=== PATIENT | female | born 1945 | race Caucasian/White ===

== ENCOUNTER 2018-08-28 13:55 | Emergency (ER) | payer MEDICARE ==
[2018-08-28] MEDS ORDERED: diphenhydrAMINE 50 MG/ML VIAL ONE (14:21)
[2018-08-28] MEDS ORDERED: Metoclopramide HCl 10 MG/2 ML VIAL ONE (14:21)
[2018-08-28 14:37] LABS: #Basophils 0.1 thou/uL (0.0-0.2); #Eosinphils 0.1 thou/uL (0.0-0.7); #Lymphocytes 1.5 thou/uL (1.20-3.40); #Monocytes 0.7 thou/uL (0.11-0.59); #Neutrophils 4.3 thou/uL (1.40-6.50); %Basophils 1.4 % (0.0-1.0); %Eosinophils 1.2 % (0.0-10.0); %Lymphocytes 22.8 % (21.0-51.0); %Monocytes 10.8 % (0.0-10.0); %Neutrophils 63.7 % (42.0-75.0); Mean Corpuscular HGB CONC 32.3 g/dL (32.0-36.0); Mean Corpuscular Volume 86.6 fL (78.0-98.0); Mean Platelet Volume 8.3 fL (7.4-10.4); Platelet Count 258 thou/uL (130-400); Red Blood Cell (RBC) Count 5.02 mill/uL (4.20-5.40); White Blood Cell (WBC) Count 6.7 thou/uL (4.8-10.8)
[2018-08-28 14:51] LABS: ALT (SGPT) 36 U/L (8-55); AST (SGOT) 32 U/L (5-34); Albumin 4.6 g/dL (3.4-4.8); Alkaline Phosphatase 84 U/L (40-150); Anion Gap 17 mmol/L (10-20); BUN (Urea Nitrogen) 33 mg/dL (9.8-20.1); Bilirubin, Total 0.4 mg/dL (0.2-1.2); Calc. Creatinine Clearance 0 mL/min (70-130); Calcium 10.1 mg/dL (7.8-10.44); Carbon Dioxide 21 mmol/L (23-31); Chloride 104 mmol/L (98-107); Estimated GFR-MDRD 64; Glucose 133 mg/dL (83-110); Lipase 22 U/L (8-78); Potassium 3.4 mmol/L (3.5-5.1); Protein, Total 7.6 g/dL (6.0-8.3); Sodium 139 mmol/L (136-145)
== END 2018-08-28 15:42 | disposition home or self-care (01) ==
LOC: SCSER 13:55
DX: R11.2 Nausea with vomiting, unspecified (principal); R19.7 Diarrhea, unspecified; F32.9 Major depressive disorder, single episode, unspecified; Z87.891 Personal history of nicotine dependence; Z79.899 Other long term (current) drug therapy
CPT/HCPCS: 80053; 83690; 85025; 96365; 96375; J1200; J2765

== ENCOUNTER 2019-03-19 10:20 | Outpatient (CLI) | payer MEDICARE ==
--- NOTE | 2019-03-19 11:33 | RAD ---
LEFT KNEE 3 VIEWS: Date: 03/19/19 HISTORY: Pain left knee. FINDINGS: Status post total knee arthroplasty changes. Soft tissue swelling, generalized, anteriorly, and media lly, No periprosthetic fracture. No dislocation. IMPRESSION: Some soft tissue swelling without other acute osseous abnormality. POS: [facility]
== END 2019-03-19 10:21 | disposition home or self-care (01) ==
LOC: SCSRAD 10:20
PROVIDERS: ATTEND Orthopaedic Surgery
DX: Z47.1 Aftercare following joint replacement surgery (principal); M25.562 Pain in left knee; M79.89 Other specified soft tissue disorders; Z96.652 Presence of left artificial knee joint

== ENCOUNTER 2020-03-18 10:11 | Outpatient (CLI) | payer MEDICARE ==
--- NOTE | 2020-03-18 12:47 | RAD ---
SCOLIOSIS SURVEY: Two views obtained. AP views of the thoracic and lumbar spine obtained. HISTORY: back pain. scoliosis FINDINGS: There is an S-shaped scoliotic curvature of the thoracolumbar spine. There are moderate degenerative changes present with disc narrowing and spurring primarily involving the mid thoracic and upper lumba r spine. There is a scoliotic curvature to the right in the mid thoracic spine measured at 41 degrees. There is a mild curvature to the left in the mid lumbar spine measured at 20 degrees. IMPRESSION: S-shaped scoliotic curvature with degenerative changes of the spine as described. POS: [facility]
== END 2020-03-18 10:12 | disposition home or self-care (01) ==
LOC: SJX 10:11
PROVIDERS: ATTEND Family Medicine
DX: M41.25 Other idiopathic scoliosis, thoracolumbar region (principal); M47.815 Spondylosis without myelopathy or radiculopathy, thoracolumbar region
CPT/HCPCS: 72081

== ENCOUNTER → 2021-09-29 | Day surgery (SDC) | payer MEDICARE | END | disposition home or self-care (01) | LOC: MAMMO 06:56 | PROVIDERS: ATTEND Family Medicine | PROC: 0H9V3ZX Drainage of Bilateral Breast, Percutaneous Approach, Diagnostic (ICD-10-PCS; principal; 2021-09-29) | DX: C50.511 Malignant neoplasm of lower-outer quadrant of right female breast (principal); C50.412 Malignant neoplasm of upper-outer quadrant of left female breast; N60.81 Other benign mammary dysplasias of right breast; N60.82 Other benign mammary dysplasias of left breast; Z17.0 Estrogen receptor positive status [ER+] | CPT/HCPCS: 19081; 76098; 88305; 88341; 88342 ==

== ENCOUNTER 2021-10-17 11:44 | Outpatient (CLI) | payer MEDICARE ==
[2021-10-17 13:12] LABS: #Eosinphils 0.3 10x3/uL (0.0-0.5); #Monocytes 0.7 10x3/uL (0.0-1.1); #Neutrophils 3.7 10x3/uL (1.5-8.4); %Basophils 0.6 % (0.0-2.0); %Eosinophils 3.9 % (0.0-6.0); %Lymphocytes 26.4 % (18.0-47.0); %Monocytes 11.3 % (0.0-10.0); %Neutrophils 57.5 % (40.0-75.0); Hemoglobin 13.5 g/dL (12.0-15.5); Mean Corpuscular HGB CONC 33.2 g/dL (32.0-36.0); Mean Corpuscular Hemoglobin 28.6 pg (27.0-33.0); Mean Corpuscular Volume 86.2 fl (81.6-98.3); Mean Platelet Volume 10.1 fl (7.4-10.4); Platelet Count 299 10x3/uL (150-450); RBC Distribution Width 13.1 % (11.5-14.5); Red Blood Cell (RBC) Count 4.72 10x6/uL (3.90-5.03); White Blood Cell (WBC) Count 6.4 10x3/uL (3.5-10.5)
[2021-10-17 13:22] LABS: Anion Gap 18 mmol/L (10-20); BUN (Urea Nitrogen) 19 mg/dL (9.8-20.1); Calc. Creatinine Clearance 0 mL/min (70-130); Calcium 9.7 mg/dL (7.8-10.44); Carbon Dioxide 22 mmol/L (23-31); Chloride 106 mmol/L (98-107); Glucose 91 mg/dL (83-110); Potassium 4.2 mmol/L (3.5-5.1); Sodium 142 mmol/L (136-145)
[2021-10-17 23:56] LABS: SARS-CoV-2 PCR by NAA Not Detected (NotDetected)
== END 2021-10-17 11:45 | disposition home or self-care (01) ==
LOC: LABBT 11:44
PROVIDERS: ATTEND Specialist
DX: Z01.818 Encounter for other preprocedural examination (principal); C50.912 Malignant neoplasm of unspecified site of left female breast; C50.911 Malignant neoplasm of unspecified site of right female breast; Z20.822 Contact with and (suspected) exposure to COVID-19
CPT/HCPCS: 80048; 85025; 93005; U0003; U0005; 93010

== ENCOUNTER 2021-10-21 07:00 | Day surgery (SDC) | payer MEDICARE ==
[2021-10-19 10:41] VITALS: BMI 31.9
[2021-10-21] MEDS ORDERED: Bupivacaine 0.25% 10 ML VIAL ONE (10:56)
[2021-10-21] MEDS ORDERED: Lidocaine 1% w/Epinephrine 1:100K 20 ML VIAL ONE (10:56)
[2021-10-21] MEDS ORDERED: Isosulfan Blue 50 MG/5 ML VIAL ONE (10:56)
[2021-10-21] MEDS ORDERED: Ketorolac Tromethamine 30 MG/ML VIAL ONE (11:04)
[2021-10-21] MEDS ORDERED: Acetaminophen 500 MG TAB ONE (11:05)
[2021-10-21] MEDS ORDERED: ceFAZolin (BATCH) 2 GM/100 ML BAG ONE (12:12)
[2021-10-21] MEDS ORDERED: HYDROmorphone 2 MG/ML VIAL ONE (12:16)
[2021-10-21] MEDS ORDERED: fentaNYL Citrate/PF 100 MCG/2 ML SYRINGE ONE ×2 (12:16→13:49)
[2021-10-21] MEDS ORDERED: PHENYLEPHRINE-NS 100 MCG/ML 10 ML SYRINGE ONE (12:25)
[2021-10-21] MEDS ORDERED: Dexamethasone 20 MG/5 ML VIAL ONE (12:25)
[2021-10-21] MEDS ORDERED: PROPOFOL 200 MG/20 ML VIAL ONE (12:25)
[2021-10-21] MEDS ORDERED: Lidocaine 1% PF 5 ML VIAL ONE (12:25)
[2021-10-21] MEDS ORDERED: Ondansetron PF 4 MG/2 ML Vial ONE (12:25)
== END 2021-10-21 17:00 | disposition home or self-care (01) ==
LOC: SDC 07:00
PROVIDERS: ATTEND Specialist
PROC: 0HBV0ZZ Excision of Bilateral Breast, Open Approach (ICD-10-PCS; principal; 2021-10-21)
PROC: 07B60ZX Excision of Left Axillary Lymphatic, Open Approach, Diagnostic (ICD-10-PCS; 2021-10-21)
PROC: 07B50ZX Excision of Right Axillary Lymphatic, Open Approach, Diagnostic (ICD-10-PCS; 2021-10-21)
DX: C50.811 Malignant neoplasm of overlapping sites of right female breast (principal); C50.812 Malignant neoplasm of overlapping sites of left female breast; N60.11 Diffuse cystic mastopathy of right breast; N60.21 Fibroadenosis of right breast; D24.1 Benign neoplasm of right breast; D24.2 Benign neoplasm of left breast; N60.82 Other benign mammary dysplasias of left breast; Z17.0 Estrogen receptor positive status [ER+]; Z79.2 Long term (current) use of antibiotics; Z79.899 Other long term (current) drug therapy; Z88.5 Allergy status to narcotic agent
CPT/HCPCS: 19281 ×2; 19301; 38525; 38900; 76098 ×2; 78195; A9541; C1713; Q9968; 88307; 88342; J0690; J1100; J1170; J1885; J2405; J2704; S0020